=== PATIENT | female | born 1955 | race Caucasian/White ===

== ENCOUNTER 2016-03-07 14:55 | Emergency (ER) | payer MEDICARE, OTHER ==
[~2016-03-07] VITALS: Ht 160 cm; Wt 80.0 kg
[~2016-03-07 14:55] MED LIST changes: -ATOR10TA15 PO; -BLOOD PRESSURE1 M20; -FLUT1INH INH; -FOSA70TA PO; -INSULIN HUMAN REGULAR 1,000 UNITS/10 ML VIAL SQ PRN; -LACTATED RINGER'S 1000 ML IV SCH; -METOPROLOL TARTRATE 25 MG TAB PO PRN; -PROP20TA3 PO; -PROP40TA3 PO; -PROPOFOL 200 MG/20 ML AMP IV ONE; -SODIUM CHLORID 0.9% 500 ML IV SCH; -TRAZ100T4 PO
[2016-03-07 14:57] VITALS: BP 166/93; PULSE 83; RESP 12; TEMP 97.5; O2SAT 97
--- NOTE | 2016-03-07 15:09 | PD ---
HPI Chief Complaint: General Weakness Time Seen by Provider: 15:09 Travel History International Travel<30 days: No Contact w/Intl Traveler<30days: No Traveled to known affect area: No History of Present Illness HPI 60-year-old female with history of CVA, subdural hemorrhage in October 2015, seizure disorder, tremors, COPD, presented to the emergency department for evaluation at the instruction of her primary care provider Dr. Olivia. Patient states that one week ago she began stuttering. She states it has persisted throughout the week and has gotten worse. She states she has had a mild headache throughout the week but otherwise is well. She reports no other focal deficits or weakness. States that she has no residual effects from her previous bleed. Denies nausea or vomiting. Has had no chest pain or tightness. No difficulty breathing. She is ambulatory with a walker. States that the stuttering did happen one time before after leaving rehabilitation but resolved within a day or 2. She was also admitted during that time. Patient at this time has no other symptoms to report. PFSH Past Medical History Arthritis: Yes Asthma: Yes Autoimmune Disease: No Anxiety: Yes Depression: Yes Cancer: Yes (skin cancer on head removed years ago) Cardiovascular Problems: No Cerebrovascular Accident: Yes Diabetes: No Diminished Hearing: No Endocrine: No Gastrointestinal Disorders: Yes (GASTROPARESIS, GERD) GERD: Yes Glaucoma: Yes Genitourinary: Yes (SELF CATHS QID) Headaches: Yes (3 time per week - takes topamax) Hepatitis: Yes (HX HEP B) Hiatal Hernia: Yes Hypertension: Yes Immune Disorder: No Implanted Vascular Access Dvce: Yes Kidney Stones: Yes Musculoskeletal: Yes (arthritis back/neck, osteoporosis) Neurologic: Yes (stroke/subdural hematoma 10/2015, seizures, tremors, stuttering 2 wks) Psychiatric: Yes (anxiety/depression) Reproductive: No Respiratory: Yes (asthma/copd) Immunizations Current: No Migraines: No Seizures: Yes Thyroid Disease: No (prev hx of now no issues per pt) Menopausal: Yes Past Surgical History Abdominal Surgery: Yes (gallbladder, hernia repair x2) AICD: No Body Medical Devices: RIGHT FOOT HARDWARE, MANOJ TO LEFT AXILLA Cardiac Surgery: No Cholecystectomy: Yes Ear Surgery: No Endocrine Surgery: No Eye Surgery: No Genitourinary Surgery: Yes (lithotripsy) Gynecologic Surgery: No Joint Replacement: No Oral Surgery: Yes (tonsillectomy) Pacemaker: No Thoracic Surgery: No Tonsillectomy: Yes Other Surgery: Yes (CHOLECYSTECTOMY,TONSILLECTOMY,EGD) Social History Alcohol Use: No Tobacco Use: No Substance Use: No Allergies-Medications (Allergen,Severity, Reaction): Coded Allergies: Ativan (Verified Allergy, Severe, pyschosis , 03/07/16) Tetanus Toxoid (Verified Allergy, Unknown, 03/07/16) *MDRO Multi-Drug Resistant Organism (Verified Adverse Reaction, Unknown, ) 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 - 10/28/15 Reported Meds & Prescriptions Reported Meds & Active Scripts Active Protonix (Pantoprazole Sodium) 40 Mg Tab 40 Mg PO DAILY Effexor (Venlafaxine HCl) 75 Mg Tab 75 Mg PO DAILY Trazodone (Trazodone HCl) 50 Mg Tab 50 Mg PO HS Xalatan Opth Drops (Latanoprost) 0.005% Drops 1 Drop EACH EYE HS Aspirin 81 (Aspirin) 81 Mg Tabdr 81 Mg PO DAILY Spiriva Handihaler (Tiotropium Inh) 18 Mcg Cap 18 Mcg INH DAILY 1 capsule = 18 mcg Fluticasone Nasal [place] 50 Mcg/Act Naspr 50 Mcg EACH NARE BID 50 mcg/spray Albuterol Neb (Albuterol Sulfate) 2.5 Mg/3 Ml Neb 2.5 Mg NEB QID NEB Reported Oxygen tank (Oxygen) 1 Ea Tank 2 Liter JUAN.CANULA CONTINUOUS PRN Oxygen Concentrator Portable Gaseous 2 L/min via Nasal Cannula Continuous For 99 months Carbamazepine 100 Mg Chew 100 Mg CHEW BID Review of Systems Except as stated in HPI: all other systems reviewed are Neg Physical Exam Narrative GENERAL: Well-nourished, female patient, ambulatory with a walker assistance, in no acute distress SKIN: Warm and dry. HEAD: Atraumatic. Normocephalic. EYES: Pupils equal and round. No scleral icterus. No injection or drainage. ENT: No nasal bleeding or discharge. Mucous membranes pink and moist. NECK: Trachea midline. No JVD. CARDIOVASCULAR: Regular rate and rhythm. No murmur appreciated. RESPIRATORY: No accessory muscle use. Clear to auscultation. Breath sounds equal bilaterally. GASTROINTESTINAL: Abdomen soft, non-tender, nondistended. Hepatic and splenic margins not palpable. MUSCULOSKELETAL: No obvious deformities. No clubbing. No cyanosis. No edema. NEUROLOGICAL: Awake and alert. Upon assessment of the cranial nerves I feel that there is a slight deviation to the right when the patient states that her tongue. There is a week and smile on the right. Patient also has a weakened hull sorter on the right when compared to the left. Stuttered speech PSYCHIATRIC: Appropriate mood and affect; insight and judgment normal. Data Data Last Documented VS Vital Signs Date Time Temp Pulse Resp B/P Pulse Ox O2 Delivery O2 Flow Rate FiO2 03/07/16 20:18 75 18 157/87 98 Room Air 03/07/16 14:57 97.5 Orders Electrocardiogram (03/07/16 15:08) Prothrombin Time / Inr (Pt) (03/07/16 15:08) Act Partial Throm Time (Ptt) (03/07/16 15:08) Complete Blood Count With Diff (03/07/16 15:08) Basic Metabolic Panel (Bmp) (03/07/16 15:08) Creatine Kinase (Cpk) (03/07/16 15:08) Drug Screen, Random Urine (03/07/16 15:08) Troponin I (03/07/16 15:08) Urinalysis - C+S If Indicated (03/07/16 15:08) Ct Brain W/O Iv Contrast(Rout) (03/07/16 15:08) Chest, Single Ap (03/07/16 15:08) Mri Brain W/O Contrast (03/07/16 20:25) Mra Brain W/O Contrast (Cow) (03/07/16 20:25) Mra Carotids W Contrast (03/07/16 20:25) Gadodiamide Pf Inj (Omniscan Pf Inj) (03/07/16 21:28) Labs Laboratory Tests Test 03/07/16 03/07/16 15:22 15:24 White Blood Count 5.0 TH/MM3 Red Blood Count 4.40 MIL/MM3 Hemoglobin 14.1 GM/DL Hematocrit 40.9 % Mean Corpuscular Volume 93.1 FL Mean Corpuscular Hemoglobin 32.0 PG Mean Corpuscular Hemoglobin 34.4 % Concent Red Cell Distribution Width 13.3 % Platelet Count 221 TH/MM3 Mean Platelet Volume 9.0 FL Neutrophils (%) (Auto) 59.4 % Lymphocytes (%) (Auto) 28.7 % Monocytes (%) (Auto) 7.3 % Eosinophils (%) (Auto) 3.8 % Basophils (%) (Auto) 0.8 % Neutrophils # (Auto) 3.0 TH/MM3 Lymphocytes # (Auto) 1.4 TH/MM3 Monocytes # (Auto) 0.4 TH/MM3 Eosinophils # (Auto) 0.2 TH/MM3 Basophils # (Auto) 0.0 TH/MM3 CBC Comment DIFF FINAL Differential Comment Prothrombin Time 10.3 SEC Prothromb Time International 0.9 RATIO Ratio Activated Partial 26.4 SEC Thromboplast Time Sodium Level 139 MEQ/L Potassium Level 3.3 MEQ/L Chloride Level 103 MEQ/L Carbon Dioxide Level 25.7 MEQ/L Anion Gap 10 MEQ/L Blood Urea Nitrogen 12 MG/DL Creatinine 0.79 MG/DL Estimat Glomerular Filtration 74 ML/MIN Rate Random Glucose 90 MG/DL Calcium Level 8.6 MG/DL Total Creatine Kinase 51 U/L Troponin I LESS THAN 0.02 NG/ML Urine Color YELLOW Urine Turbidity CLEAR Urine pH 6.0 Urine Specific [place] 1.013 Urine Protein NEG mg/dL Urine Glucose (UA) NEG mg/dL Urine Ketones NEG mg/dL Urine Occult Blood NEG Urine Nitrite NEG Urine Bilirubin NEG Urine Urobilinogen LESS THAN 2.0 MG/DL Urine Leukocyte Esterase SMALL Urine RBC LESS THAN 1 /hpf Urine WBC 2 /hpf Urine Squamous Epithelial 1 /hpf Cells Microscopic Urinalysis Comment CATH-CULT NOT IND MDM Medical Decision Making Medical Screen Exam Complete: Yes Emergency Medical Condition: Yes Medical Record Reviewed: Yes Differential Diagnosis CVA versus TIA versus intracranial hemorrhage versus medication side effect versus electrolyte abnormality versus conversion disorder Narrative Course 60 year-old female presents to emergency department for evaluation. Patient appears overall without distress. She is stuttering and has very slight weakness on the right when compared to the left. Consent consent been ongoing for a week. Workup was initiated in the triage area. Once a medical bed becomes available, patient will be transferred and care assumed by that provider. Condition: Stable OrtegaKamryn gonzales KATHE Mar 07, 2016 15:09
[2016-03-07 15:47] LABS: BASOPHIL % 0.8 % (0.0-2.0); EOSINOPHIL # 0.2 TH/MM3 (0-0.4); EOSINOPHIL % 3.8 % (0.0-4.0); HEMATOCRIT 40.9 % (35.0-46.0); HEMO FLAGS DIFF FINAL; LYMPH % 28.7 % (9.0-44.0); LYMPHOCYTE # 1.4 TH/MM3 (1.0-4.8); MEAN CELL VOLUME 93.1 FL (80.0-100.0); MEAN CORPUSCULAR HGB CONC 34.4 % (32.0-36.0); MONO % 7.3 % (0.0-8.0); NEUT % 59.4 % (16.0-70.0); PLATELET COUNT 221 TH/MM3 (150-450); RED CELL DISTRIBUTION WIDTH 13.3 % (11.6-17.2)
--- NOTE | 2016-03-07 15:56 | RADRPT ---
EXAM DATE/TIME: 03/07/2016 15:19 [facility] COMPARISON: CHEST SINGLE AP, November 01, 2015, 9:24. INDICATIONS : Short of breath. MEDICAL HISTORY : Stroke. SURGICAL HISTORY : None. ENCOUNTER: Initial ACUITY: 1 day PAIN SCORE: 3/10 LOCATION: Bilateral chest FINDINGS: Portable AP view of the chest demonstrates a normal-sized cardiac silhouette. No effusion, consolidat ion, or pneumothorax is visualized. The bones and soft tissues demonstrate no acute abnormality. Lung s are underinflated. Clips overlie the left axilla. CONCLUSION: No acute cardiopulmonary abnormality is identified. Tim Lopez MD on March 07, 2016 at 15:50 Board Certified Radiologist. This report was verified electronically.
[2016-03-07 15:59] LABS: BLOOD, URINE NEG (NEG); GLUCOSE,URINE NEG (NEG); KETONE, URINE NEG (NEG); NITRITE,URINE NEG (NEG); SQUAMOUS EPITHELIAL CELL URINE 1 /hpf (0-5); URINE COLOR YELLOW (YELLW/STRAW)
--- NOTE | 2016-03-07 16:00 | RADRPT ---
EXAM DATE/TIME: 03/07/2016 15:53 [facility] COMPARISON: CT BRAIN W/O CONTRAST, December 06, 2015, 18:25. INDICATIONS : Stuttering for 1 week; stroke 1 year ago. RADIATION DOSE: 46.36 CTDIvol (mGy) MEDICAL HISTORY : Stroke. Seizures. Hypertension.ICH, glaucoma, tremors, skin cancer. SURGICAL HISTORY : Tonsillectomy. ENCOUNTER: Initial ACUITY: 1 week PAIN SCALE: 0/10 LOCATION: cranial TECHNIQUE: Multiple contiguous axial images were obtained of the head. Using automated exposure control and adj ustment of the mA and/or kV according to patient size, radiation dose was kept as low as reasonably a chievable to obtain optimal diagnostic quality images. FINDINGS: CEREBRUM: The ventricles are normal for age. No evidence of midline shift, mass lesion, hemorrhage or acute in farction. No extra-axial fluid collections are seen. POSTERIOR FOSSA: The cerebellum and brainstem are intact. The 4th ventricle is midline. The cerebellopontine angle i s unremarkable. EXTRACRANIAL: The visualized portion of the orbits is intact. SKULL: The calvaria is intact. No evidence of skull fracture. CONCLUSION: No acute disease. No significant change has occurred. Drew Garcia MD on March 07, 2016 at 15:58 Board Certified Radiologist. This report was verified electronically.
[2016-03-07 16:01] LABS: APTT (PATIENT) 26.4 SEC (24.3-30.1); INTERNATIONAL NORMALIZED RATIO 0.9 RATIO; PROTHROMBIN TIME - PATIENT 10.3 SEC (9.8-11.6)
[2016-03-07 16:05] LABS: ANION GAP 10 MEQ/L (5-15); BICARBONATE 25.7 MEQ/L (21.0-32.0); BLOOD UREA NITROGEN 12 MG/DL (7-18); CHLORIDE 103 MEQ/L (98-107); GLOMERULAR FILTRATION RATE 74 ML/MIN (>89); POTASSIUM 3.3 MEQ/L (3.5-5.1); SODIUM (NA) 139 MEQ/L (136-145)
[2016-03-07 16:14] LABS: COMMENT (UR) CATH-CULT NOT IND; CULTURE IF INDICATED CATH CULTURE NOT IND
[2016-03-07 16:38] LABS: CREATINE KINASE 51 U/L (26-192)
--- NOTE | 2016-03-07 19:19 | EKG ---
Date Performed: 03/07/2016 Time Performed: 16:03:01 PTAGE: 60 years EKG: Sinus rhythm NORMAL ECG COMPARED TO PRIOR ELECTROCARDIOGRAM, No definite change. PREVIOUS TRACING : 12/06/2015 17.31 DOCTOR: Jeff Argueta Interpretating Date/Time 03/07/2016 19:18:38
[2016-03-07 20:18] VITALS: BP 157/87; PULSE 75; RESP 18; O2SAT 98
--- NOTE | 2016-03-07 20:22 | PD ---
Physical Exam Narrative Patient was seen by my physician hotel administrative assistant and signed out to me. Data Data Last Documented VS Vital Signs Date Time Temp Pulse Resp B/P Pulse Ox O2 Delivery O2 Flow Rate FiO2 03/07/16 20:18 75 18 157/87 98 Room Air 03/07/16 14:57 97.5 Orders Electrocardiogram (03/07/16 15:08) Prothrombin Time / Inr (Pt) (03/07/16 15:08) Act Partial Throm Time (Ptt) (03/07/16 15:08) Complete Blood Count With Diff (03/07/16 15:08) Basic Metabolic Panel (Bmp) (03/07/16 15:08) Creatine Kinase (Cpk) (03/07/16 15:08) Drug Screen, Random Urine (03/07/16 15:08) Troponin I (03/07/16 15:08) Urinalysis - C+S If Indicated (03/07/16 15:08) Ct Brain W/O Iv Contrast(Rout) (03/07/16 15:08) Chest, Single Ap (03/07/16 15:08) Mri Brain W/O Contrast (03/07/16 20:25) Mra Brain W/O Contrast (Cow) (03/07/16 20:25) Mra Carotids W Contrast (03/07/16 20:25) Gadodiamide Pf Inj (Omniscan Pf Inj) (03/07/16 21:28) Labs Laboratory Tests Test 03/07/16 03/07/16 15:22 15:24 White Blood Count 5.0 TH/MM3 Red Blood Count 4.40 MIL/MM3 Hemoglobin 14.1 GM/DL Hematocrit 40.9 % Mean Corpuscular Volume 93.1 FL Mean Corpuscular Hemoglobin 32.0 PG Mean Corpuscular Hemoglobin 34.4 % Concent Red Cell Distribution Width 13.3 % Platelet Count 221 TH/MM3 Mean Platelet Volume 9.0 FL Neutrophils (%) (Auto) 59.4 % Lymphocytes (%) (Auto) 28.7 % Monocytes (%) (Auto) 7.3 % Eosinophils (%) (Auto) 3.8 % Basophils (%) (Auto) 0.8 % Neutrophils # (Auto) 3.0 TH/MM3 Lymphocytes # (Auto) 1.4 TH/MM3 Monocytes # (Auto) 0.4 TH/MM3 Eosinophils # (Auto) 0.2 TH/MM3 Basophils # (Auto) 0.0 TH/MM3 CBC Comment DIFF FINAL Differential Comment Prothrombin Time 10.3 SEC Prothromb Time International 0.9 RATIO Ratio Activated Partial 26.4 SEC Thromboplast Time Sodium Level 139 MEQ/L Potassium Level 3.3 MEQ/L Chloride Level 103 MEQ/L Carbon Dioxide Level 25.7 MEQ/L Anion Gap 10 MEQ/L Blood Urea Nitrogen 12 MG/DL Creatinine 0.79 MG/DL Estimat Glomerular Filtration 74 ML/MIN Rate Random Glucose 90 MG/DL Calcium Level 8.6 MG/DL Total Creatine Kinase 51 U/L Troponin I LESS THAN 0.02 NG/ML Urine Color YELLOW Urine Turbidity CLEAR Urine pH 6.0 Urine Specific [place] 1.013 Urine Protein NEG mg/dL Urine Glucose (UA) NEG mg/dL Urine Ketones NEG mg/dL Urine Occult Blood NEG Urine Nitrite NEG Urine Bilirubin NEG Urine Urobilinogen LESS THAN 2.0 MG/DL Urine Leukocyte Esterase SMALL Urine RBC LESS THAN 1 /hpf Urine WBC 2 /hpf Urine Squamous Epithelial 1 /hpf Cells Microscopic Urinalysis Comment CATH-CULT NOT IND MDM Supervised Visit with RADHA: Yes Interpretation(s) Last Impressions Head CT 03/07/16 1508 Signed Impressions: Service Date/Time: Monday, March 07, 2016 15:53 - CONCLUSION: No acute disease. No significant change has occurred. Drew Garcia MD Chest X-Ray 03/07/16 1508 Signed Impressions: Service Date/Time: Monday, March 07, 2016 15:19 - CONCLUSION: No acute cardiopulmonary abnormality is identified. Tim Lopez MD 2019 PM. CBC within normal limit. BMP within normal limit. Potassium 3.3. Cardiac enzymes are normal. UA is negative. Narrative Course 10:[address] of the brain MRI MRA shows no acute process. I spoke with Dr. Rodriguez, on-call for Dr. Gama. Advised patient to follow-up with personal physician and neurologist. Diagnosis Primary Impression: Stutter Patient Instructions: General Instructions Additional Instruction: Follow-up with personal physician and neurologist. Return if worse. Med/Other Pt SpecificInfo: No Change to Meds Disposition: 01 DISCHARGE HOME Condition: Stable Taj Segura MD Mar 07, 2016 20:22
[2016-03-07] MEDS ORDERED: GADODIAMIDE PF 287 MG/ML 20 ML VIAL (for RAD MRI) IV ONE (21:28)
--- NOTE | 2016-03-07 21:41 | RADRPT ---
EXAM DATE/TIME: 03/07/2016 20:58 [facility] COMPARISON: MRA BRAIN W/O CONTRAST, October 26, 2015, 14:33. INDICATIONS : CVA. Stuttering. MEDICAL HISTORY : Cerebrovascular disease. Seizures. Osteoporosis. Subdural hemorrhage. SURGICAL HISTORY : Tonsillectomy. Cholecystectomy. Umbilical hernia repair. Foot surgery. ENCOUNTER: Subsequent ACUITY: 2 day PAIN SCORE: 0/10 LOCATION: head. Please note a normal MRA of the brain does not entirely exclude the possibility of a small aneurysm, nor the possibility of distal intracranial vessel disease. TECHNIQUE: 3D time of flight MRA was performed. Source images, multiplanar STS MIP, and 3D volume MIP reconstru ctions were reviewed. FINDINGS: There is excellent visualization of the major intracranial arteries out to the second-order branch ve ssels. The left vertebral artery is dominant. A mild stenosis is seen involving the nondominant right vertebral artery. Post applied the basilar. There is no evidence for aneurysm or vascular malformati on. CONCLUSION: No acute abnormality. Mild stenosis involving the nondominant right vertebral artery. Andrey Venegas Jr., MD on March 07, 2016 at 21:37 Board Certified Radiologist. This report was verified electronically.
--- NOTE | 2016-03-07 21:47 | RADRPT ---
EXAM DATE/TIME: 03/07/2016 20:58 [facility] COMPARISON: MRI BRAIN W & W/O CONTRAST, December 06, 2015, 20:08. INDICATIONS : CVA. Stuttering. MEDICAL HISTORY : Osteoporosis. Cerebrovascular disease. Seizures. Subdural hemorrhage. SURGICAL HISTORY : Tonsillectomy. Cholecystectomy. Umbilical hernia repair. Foot surgery. ENCOUNTER: Subsequent ACUITY: 2 day PAIN SCORE: 0/10 LOCATION: head. TECHNIQUE: Multiplanar, multisequence MRI of the brain was performed without contrast. FINDINGS: CEREBRUM: The ventricles are normal for age. No evidence of midline shift, mass lesion, hemorrhage or acute in farction. No extraaxial fluid collections are seen. The pituitary gland and suprasellar cistern are normal in configuration. Normal flow voids involving the major intracranial vessels. Note is made of dolichoectasia. WHITE MATTER: Scattered foci of high T2 signal abnormality involving the periventricular white matter of both cereb ral hemispheres. This is more abundant on the left. This is unchanged from the prior study. A POSTERIOR FOSSA: The cerebellum and brainstem are intact. The 4th ventricle is midline. The cerebellopontine angle is unremarkable. The cerebellar tonsils are normal in position. DIFFUSION IMAGING: No focal areas of restricted diffusion are seen. No evidence of acute infarction. EXTRACRANIAL: The visualized portions of the orbits and paranasal sinuses are unremarkable. CONCLUSION: 1. No acute intracranial abnormality. 2. Chronic small vessel ischemic change somewhat asymmetric towards the left cerebral hemisphere. 3. Dolichoectasia. Andrey Venegas Jr., MD on March 07, 2016 at 21:40 Board Certified Radiologist. This report was verified electronically.
--- NOTE | 2016-03-07 21:53 | RADRPT ---
EXAM DATE/TIME: 03/07/2016 20:58 [facility] COMPARISON: MRA CAROTIDS W CONTRAST, October 26, 2015, 14:33. INDICATIONS : Stenosis. CONTRAST: 20 cc Omniscan (gadodiamide) IV MEDICAL HISTORY : Osteoporosis. Cerebrovascular disease. Seizures. Subdural hemorrhage. SURGICAL HISTORY : Tonsillectomy. Cholecystectomy. Umbilical hernia repair. Foot surgery. ENCOUNTER: Subsequent ACUITY: 2 day PAIN SCORE: 0/10 LOCATION: neck. Percent stenosis is calculated using the diameter of the stenotic region over the diameter of the nor mal distal internal carotid artery. TECHNIQUE: Bolus infused MRA of the extracranial circulation was performed using a neurovascular coil. Post pro cessing was performed including rotationg subvolume maximum intensity projections of each carotid art donta, rotating full volume maximum intensity projections of both carotid arteries, sagittal and valdovinos l sliding thin slab reformations of each carotid artery, and left oblique sliding thin slab reformati on through the aortic arch to include the origin of the arch branch vessels. FINDINGS: AORTIC ARCH: There is a three vessel origin of the great vessels from the aorta. No evidence of ostial narrowing. RIGHT CAROTID: The common carotid artery is intact. The carotid bulb has a normal configuration without ulceration or narrowing. The internal carotid artery lumen is smooth without stenosis. The external carotid ar [place] is intact. LEFT CAROTID: The common carotid artery is intact. The carotid bulb has a normal configuration without ulceration or narrowing. The internal carotid artery lumen is smooth without stenosis. The external carotid ar [place] is intact. VERTEBRALS: The left vertebral artery is dominant. No stenotic lesions are seen. CONCLUSION: 1. Patent although tortuous carotids bilaterally. 2. Left vertebral artery is dominant. Andrey Venegas Jr., MD on March 07, 2016 at 21:49 Board Certified Radiologist. This report was verified electronically.
[2016-03-17] MEDS ORDERED: TRAZ50TA12 PO ×2 (11:34→11:35)
[2016-03-17] MEDS ORDERED: PROP40TA3 PO (11:36)
[2016-03-17] MEDS ORDERED: ATOR10TA15 PO (11:38)
[2016-03-17] MEDS ORDERED: FOSA70TA PO (11:41)
[2016-03-20] MEDS ORDERED: TRAZ100T4 PO (11:15)
[2016-04-25] MEDS ORDERED: BLOOD PRESSURE1 M20 (13:43)
[2016-04-25] MEDS ORDERED: SPIRCAP INH (14:22)
[2016-04-25] MEDS ORDERED: ASPI-110 PO (14:22)
[2016-04-25] MEDS ORDERED: ALBU0.08 NEB (14:22)
[2016-04-25] MEDS ORDERED: FLUT50SP EACH NARE (14:22)
[2016-07-14] MEDS ORDERED: TRAZ50TA12 PO (13:53)
[2016-07-19] MEDS ORDERED: VENL75TA PO (07:21)
[2016-07-19] MEDS ORDERED: PROT40TA PO (07:22)
[2016-07-26] MEDS ORDERED: FLUT1INH INH (14:38)
[2016-07-26] MEDS ORDERED: PROP20TA3 PO (14:40)
== END 2016-03-07 23:45 | disposition home or self-care (01) ==
LOC: NEPA 14:55
DX: F98.5 Adult onset fluency disorder (principal); R51 Headache; I10 Essential (primary) hypertension; Z87.39 Personal history of other diseases of the musculoskeletal system and connective tissue; Z86.73 Personal history of transient ischemic attack (TIA), and cerebral infarction without residual deficits; Z86.69 Personal history of other diseases of the nervous system and sense organs; Z87.09 Personal history of other diseases of the respiratory system; Z86.59 Personal history of other mental and behavioral disorders; Z87.19 Personal history of other diseases of the digestive system; Z87.448 Personal history of other diseases of urinary system; Z86.19 Personal history of other infectious and parasitic diseases; Z87.442 Personal history of urinary calculi; K22.2 Esophageal obstruction; K22.10 Ulcer of esophagus without bleeding; K44.9 Diaphragmatic hernia without obstruction or gangrene; K29.50 Unspecified chronic gastritis without bleeding; R10.13 Epigastric pain; R11.2 Nausea with vomiting, unspecified
CPT/HCPCS: 70450; 70544; 70548; 70551; 71010; 80048; 81001; 82550; 84484; 85025; 85610; 85730; 93005; 99285; A9579; 88305; 88312; C1769

== ENCOUNTER → 2016-03-07 | Outpatient (CLI) | payer MEDICARE, OTHER ==
[~2016-03-07] VITALS: Ht 160 cm; Wt 73.3 kg
[~2016-03-07] MED LIST: ALBU0.08 NEB; ASPI-110 PO; ATOR10TA15 PO; BLOOD PRESSURE1 M20; CARB100C CHEW; FLUT1INH INH; FLUT50SP EACH NARE; FOSA70TA PO; INSULIN HUMAN REGULAR 1,000 UNITS/10 ML VIAL SQ PRN; IPRAAER INH; LACTATED RINGER'S 1000 ML IV SCH; LATA.005%O EACH EYE; METOPROLOL TARTRATE 25 MG TAB PO PRN; OXYGENTANK NAS.CANULA; PROP20TA3 PO; PROP40TA3 PO; PROPOFOL 200 MG/20 ML AMP IV ONE; PROT40TA PO; SODIUM CHLORID 0.9% 500 ML IV SCH; SPIRCAP INH; TRAZ100T4 PO; TRAZ50TA12 PO; VENL75TA PO
[2016-03-07 08:49] VITALS: BP 130/72; PULSE 80; RESP 20; TEMP 98.1; O2SAT 100
[2016-03-07 10:12] VITALS: BP 118/67; PULSE 65; RESP 18; O2SAT 99
== END ==
LOC: HEND 08:08
PROVIDERS: ATTEND Internal Medicine Gastroenterology
DX: K22.2 Esophageal obstruction (principal); K22.10 Ulcer of esophagus without bleeding; K44.9 Diaphragmatic hernia without obstruction or gangrene; K29.50 Unspecified chronic gastritis without bleeding; R10.13 Epigastric pain; R11.2 Nausea with vomiting, unspecified
CPT/HCPCS: 43239; 43248; 88305; 88312; 99156; 99157; C1769

== ENCOUNTER → 2016-04-21 | Outpatient (CLI) | payer MEDICARE, OTHER ==
[~2016-04-21] VITALS: Ht 160 cm; Wt 73.6 kg
[~2016-04-21] MED LIST changes: +ATOR10TA15 PO; +BENZOCAINE 20% ORAL SPR 60 ML CAN OROPHARYNG ONE; +BLOOD PRESSURE1 M20; +FLUT1INH INH; +FOSA70TA PO; -IPRAAER INH; +LIDOCAINE HCL 2% JELLY 5 ML SYRINGE TOPICAL ONE; +PROP20TA3 PO; +PROP40TA3 PO; +TRAZ100T4 PO
[2016-04-21 08:24] VITALS: BP 113/72; PULSE 52; RESP 16; TEMP 97.6; O2SAT 100
== END ==
LOC: HEND 07:14
PROVIDERS: ATTEND Internal Medicine Gastroenterology
DX: K44.9 Diaphragmatic hernia without obstruction or gangrene (principal)
CPT/HCPCS: 91010

== ENCOUNTER → 2016-11-06 | Day surgery (SDC) | payer MEDICARE, OTHER ==
[~2016-11-06] MED LIST changes: -BENZOCAINE 20% ORAL SPR 60 ML CAN OROPHARYNG ONE; +LACTATED RINGER'S 1000 ML INJ 1,000 ML ONE; -LIDOCAINE HCL 2% JELLY 5 ML SYRINGE TOPICAL ONE; -PROP40TA3 PO; +PROPOFOL 200 MG/20 ML AMP IV ONE; -PROT40TA PO; -TRAZ100T4 PO
--- NOTE | 2016-11-06 14:09 | GIPROC ---
[facility] [address] [facility], [address] EGD WITH DILATION PROCEDURE REPORT EXAM DATE: 11/06/2016 PATIENT NAME: Lourdes Shell MR#: [id number] BIRTHDATE: 1955 ATTENDING: Ivette Shcwartz MD ORDER #: [id number] DIRECTOR OF CAMPUS RECREATION: STATUS: outpatient INDICATIONS: The patient is a 61 yr old female here for an EGD with dilation due to dysphagia recurrent esophaghitis, stricture PROCEDURE PERFORMED: EGD w/ biopsy EGD w/ dilation of esophagus via guidewire MEDICATIONS: None and Per Anesthesia. TOPICAL ANESTHETIC: none CONSENT: The patient understands the risks and benefits of the procedure and understands that these risks include, but are not limited to: sedation, allergic reaction, infection, perforation and/or bleeding. Alternative means of evaluation and treatment include, among others: physical exam, x-rays, and/or surgical intervention. The patient elects to proceed with this endoscopic procedure. medical equipment was checked for proper function. Hand hygiene and appropriate measures for infection prevention was taken. After the risks, benefits and alternatives of the procedure were thoroughly explained, Informed consent was verified, confirmed and timeout was successfully executed by the treatment team. The patient was anesthetized with topical anesthesia and the EC-[id number] ([id number]) endoscope was introduced through the mouth and advanced to the second portion of the duodenum. The instrument was slowly withdrawn as the mucosa was fully examined. Severe esophagitis distal esophagus , stricture-biopsy hiatal hernia s/p Niessen funduplication gastritis antrum-biopsy. Dilation was performed at gastroesophageal junction. DILATOR: SIZE(S): RESISTANCE: HEME: APPEARANCE: Dilator: Savary over guidewire Size(s): 15 COMMENT: Retroflexed views revealed niessen funduplication ADVERSE EVENTS: There were no complications. IMPRESSIONS: 1. Severe esophagitis distal esophagus , stricture-biopsy hiatal hernia s/p Niessen funduplication gastritis antrum-biopsy 2. Retroflexed views revealed niessen funduplication RECOMMENDATIONS: 1. Await biopsy results. Biopsy results will not be ready for 7-10 days. If you don't hear from us in two weeks, call our office for biopsy results. 2. Anti-reflux regimen 3. Continue PPI 4. Dilatations PRN REPEAT EXAM: Return 3 months EGD Ivette Schwartz MD eSigned: Ivette Schwartz MD 11/06/2016 2:09 PM cc: Miko Devlin [facility] PATIENT NAME: Suleman Lourdes Christi MR#: [id number]
== END | disposition home or self-care (01) ==
LOC: ESDC 12:42
PROVIDERS: ATTEND Internal Medicine Gastroenterology
DX: R13.10 Dysphagia, unspecified (principal); K20.9 Esophagitis, unspecified; K22.2 Esophageal obstruction; K44.9 Diaphragmatic hernia without obstruction or gangrene; K29.70 Gastritis, unspecified, without bleeding
CPT/HCPCS: 00740; 43239; 43248; 88305; 88312; J7120

== ENCOUNTER 2017-07-25 10:07 | Emergency (ER) | payer MEDICARE, OTHER ==
[~2017-07-25] VITALS: Ht 157.5 cm; Wt 65.0 kg
[~2017-07-25 10:07] MED LIST changes: -ASPI-110 PO; +ASPI1TAB57 PO; -LACTATED RINGER'S 1000 ML INJ 1,000 ML ONE; +PANT40TA3 PO; -PROPOFOL 200 MG/20 ML AMP IV ONE; +SUCR1TAB PO
[2017-07-25 10:10] VITALS: BP 138/75; PULSE 63; RESP 16; TEMP 97.5; O2SAT 99
[2017-07-25] MEDS ORDERED: SODIUM CHLOR 0.9% 1000 ML INJ 1,000 ML IV SCH (10:25)
[2017-07-25] MEDS ORDERED: ONDANSETRON ODT 4 MG TAB PO ONE (10:30)
[2017-07-25] MEDS ORDERED: SODIUM CHLORIDE 0.9% FLUSH 10 ML FLUSH IV FLUSH PRN (10:30)
--- NOTE | 2017-07-25 10:32 | PD ---
HPI Chief Complaint: GI Complaint Time Seen by Provider: 10:18 Travel History International Travel<30 days: No Contact w/Intl Traveler<30days: No Traveled to known affect area: No History of Present Illness HPI The patient is a 61-year-old female who presents to the emergency department for nausea and vomiting of 3 days duration. The patient states she has a history of previous Carlos fundoplication, recurrent hiatal hernia with repair, and previous cholecystectomy. The patient was seen initially by Dr. Marsh, however, was referred to [facility] [place] [facility] in [place], [place]. The patient underwent revision of her Carlos fundoplication and hiatal hernia several months ago and has been doing well. However, over the last 3 days the patient has had nausea and vomiting. The patient denies any diarrhea, abdominal distention, and has been passing gas without difficulty. She does complain of intermittent dysuria. Symptoms are moderate. The patient does have a previous history of pancreatitis, also has a previous history of cholecystectomy. She denies any chest pain or shortness of breath. PFSH Past Medical History Arthritis: Yes Asthma: Yes Autoimmune Disease: No Anxiety: Yes Depression: Yes Cancer: Yes (skin cancer on head removed years ago) Cardiovascular Problems: No Cerebrovascular Accident: Yes Diabetes: No Diminished Hearing: No Endocrine: No Gastrointestinal Disorders: Yes (acid reflux, gastroparesis) GERD: Yes Glaucoma: Yes Genitourinary: Yes (SELF CATHS QID) Headaches: Yes (3 time per week - takes topamax) Hepatitis: Yes (HX HEP B) Hiatal Hernia: Yes Hypertension: Yes Immune Disorder: No Implanted Vascular Access Dvce: No Kidney Stones: Yes Musculoskeletal: Yes (arthritis back/neck, osteoporosis) Neurologic: Yes (stroke/subdural hematoma 10/2015, seizures, tremors, stuttering 2 wks) Psychiatric: Yes (anxiety/depression) Reproductive: No Respiratory: Yes (asthma/copd) Immunizations Current: No Migraines: No Pancreatitis: Yes Seizures: Yes Tetanus Vaccination: < 5 Years Menopausal: Yes Past Surgical History Abdominal Surgery: Yes (gallbladder, hernia repair x2, Cheli fundoplication) AICD: No Body Medical Devices: RIGHT FOOT HARDWARE, Cardiac Surgery: No Cholecystectomy: Yes Ear Surgery: No Endocrine Surgery: No Eye Surgery: No Genitourinary Surgery: Yes (lithotripsy) Gynecologic Surgery: No Joint Replacement: No Neurologic Surgery: No Oral Surgery: Yes (tonsillectomy) Pacemaker: No Thoracic Surgery: No Tonsillectomy: Yes Other Surgery: Yes (CHOLECYSTECTOMY,TONSILLECTOMY,EGD) Social History Alcohol Use: No Tobacco Use: No Substance Use: No Allergies-Medications (Allergen,Severity, Reaction): Coded Allergies: lorazepam (Unverified Allergy, Severe, pyschosis , 07/25/17) tetanus toxoid, adsorbed (Unverified Allergy, Unknown, 07/25/17) *MDRO Multi-Drug Resistant Organism (Verified Adverse Reaction, Unknown, ) 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 - 10/28/15 Reported Meds & Prescriptions Reported Meds & Active Scripts Active Atorvastatin (Atorvastatin Calcium) 10 Mg Tab 10 Mg PO HS Trazodone (Trazodone HCl) 50 Mg Tab 100 Mg PO HS Spiriva Handihaler (Tiotropium Inh) 18 Mcg Cap 18 Mcg INH DAILY 1 capsule = 18 mcg Fluticasone Nasal [place] 50 Mcg/Act Naspr 50 Mcg EACH NARE BID 50 mcg/spray Albuterol Neb (Albuterol Sulfate) 2.5 Mg/3 Ml Neb 2.5 Mg NEB QID NEB Fosamax (Alendronate Sodium) 70 Mg Tab 70 Mg PO Q7D Xalatan Opth Drops (Latanoprost) 0.005% Drops 1 Drop EACH EYE HS Propranolol (Propranolol HCl) 20 Mg Tab 20 Mg PO Q12HR Effexor (Venlafaxine HCl) 75 Mg Tab 75 Mg PO DAILY Aspirin 81 (Aspirin) 81 Mg Tabdr 81 Mg PO DAILY Blood Pressure Kit/Arm Cuff 1 Mis Mis 1 Ea .ROUTE DIRECTED Reported Miralax Powder (Polyethylene Glycol 3350 Powder) 17 Gm Powd 17 Gm PO DAILY PRN Mix and dissolve one measuring cap-ful (17 grams) in water or juice. Ventolin Hfa 18 GM Inh (Albuterol Sulfate) 90 Mcg/Act Aer 2 Puff INH Q4-6H PRN Klor-Con 10 (Potassium Chloride) 10 Meq Tab 10 Meq PO DAILY Omeprazole 20 Mg Tab 20 Mg PO DAILY Breo Ellipta Inh (Fluticasone/Vilanterol) 100-25 Mcg/Act Inh 1 Puff INH DAILY Use daily at the same time. Oxygen tank (Oxygen) 1 Ea Tank 2 Liter JUAN.CANULA CONTINUOUS PRN Oxygen Concentrator Portable Gaseous 2 L/min via Nasal Cannula Continuous For 99 months Carbamazepine 100 Mg Chew 100 Mg CHEW BID Review of Systems Except as stated in HPI: all other systems reviewed are Neg General / Constitutional: No: Fever Cardiovascular: No: Chest Pain or Discomfort Respiratory: No: Shortness of Breath Gastrointestinal: Positive: Nausea, Vomiting, No: Diarrhea, Abdominal Pain, Changes in Bowel Habits, Loss of Appetite Genitourinary: Positive: Dysuria Musculoskeletal: No: Weakness Physical Exam Narrative GENERAL: Awake, alert, pleasant 7-year-old female who appears her stated age and is in no acute respiratory distress. SKIN: Focused skin assessment warm/dry. HEAD: Atraumatic. Normocephalic. EYES: Pupils equal and round. No scleral icterus. No injection or drainage. ENT: No nasal bleeding or discharge. Slightly dry mucous membranes. NECK: Trachea midline. No JVD. CARDIOVASCULAR: Regular rate and rhythm. No murmur appreciated. RESPIRATORY: No accessory muscle use. Clear to auscultation. Breath sounds equal bilaterally. GASTROINTESTINAL: Abdomen soft, minimal epigastric tenderness. No guarding or rigidity. No tympany noted. Well-healed laparoscopic scars noted. MUSCULOSKELETAL: No obvious deformities. No clubbing. No cyanosis. No edema. NEUROLOGICAL: Awake and alert. No obvious cranial nerve deficits. Motor grossly within normal limits. Normal speech. PSYCHIATRIC: Appropriate mood and affect; insight and judgment normal. Data Data Last Documented VS Vital Signs Date Time Temp Pulse Resp B/P (MAP) Pulse Ox O2 Delivery O2 Flow Rate FiO2 07/25/17 10:39 100 Room Air 07/25/17 10:39 70 12 142/80 (100) 07/25/17 10:10 97.5 Orders Orders Complete Blood Count With Diff (07/25/17 10:25) Comprehensive Metabolic Panel (07/25/17 10:25) Lipase (07/25/17 10:25) Lactic Acid (07/25/17 10:25) Urinalysis - C+S If Indicated (07/25/17 10:25) Ct Abd/Pel W Iv Contrast(Rout) (07/25/17 10:25) Iv Access Insert/Monitor (07/25/17 10:25) Ecg Monitoring (07/25/17 10:25) Oximetry (07/25/17 10:25) Sodium Chlor 0.9% 1000 Ml Inj (Ns 1000 M (07/25/17 10:25) Sodium Chloride 0.9% Flush (Ns Flush) (07/25/17 10:30) Ondansetron Odt (Zofran Odt) (07/25/17 10:30) Oral Contrast - Adult (07/25/17 10:30) Electrocardiogram (07/25/17 ) Troponin I (07/25/17 10:40) Creatine Kinase (Cpk) (07/25/17 10:40) Diatrizoate Liq ( Gastroview Liq) (07/25/17 10:42) Urine Culture (07/25/17 10:54) Morphine Inj (Morphine Inj) (07/25/17 11:45) Ceftriaxone Inj (Rocephin Inj) (07/25/17 12:15) Morphine Inj (Morphine Inj) (07/25/17 13:45) Iohexol 350 Inj (Omnipaque 350 Inj) (07/25/17 13:00) Labs Laboratory Tests Test 07/25/17 10:40 07/25/17 10:54 07/25/17 11:57 Blood Urea Nitrogen 10 MG/DL Creatinine 0.74 MG/DL Random Glucose 93 MG/DL Total Protein 7.9 GM/DL Albumin 4.2 GM/DL Calcium Level 9.1 MG/DL Alkaline Phosphatase 114 U/L Aspartate Amino Transf (AST/SGOT) 53 U/L Alanine Aminotransferase (ALT/SGPT) 29 U/L Total Bilirubin 0.7 MG/DL Sodium Level 138 MEQ/L Potassium Level 4.7 MEQ/L Chloride Level 104 MEQ/L Carbon Dioxide Level 24.6 MEQ/L Anion Gap 9 MEQ/L Estimat Glomerular Filtration Rate 80 ML/MIN Lactic Acid Level 0.5 mmol/L Total Creatine Kinase 114 U/L Troponin I LESS THAN 0.02 NG/ML Lipase 34 U/L Urine Color YELLOW Urine Turbidity CLOUDY Urine pH 6.0 Urine Specific [place] 1.025 Urine Protein 30 mg/dL Urine Glucose (UA) NEG mg/dL Urine Ketones 10 mg/dL Urine Occult Blood SMALL Urine Nitrite NEG Urine Bilirubin NEG Urine Urobilinogen 2.0 MG/DL Urine Leukocyte Esterase LARGE Urine RBC 5 /hpf Urine WBC /hpf Urine Bacteria FEW /hpf Urine Hyaline Casts 4 /lpf Microscopic Urinalysis Comment CULTURE INDICATED White Blood Count 3.7 TH/MM3 Red Blood Count 4.22 MIL/MM3 Hemoglobin 13.4 GM/DL Hematocrit 39.7 % Mean Corpuscular Volume 94.0 FL Mean Corpuscular Hemoglobin 31.8 PG Mean Corpuscular Hemoglobin Concent 33.8 % Red Cell Distribution Width 13.3 % Platelet Count 180 TH/MM3 Mean Platelet Volume 9.4 FL Neutrophils (%) (Auto) 58.0 % Lymphocytes (%) (Auto) 27.4 % Monocytes (%) (Auto) 7.8 % Eosinophils (%) (Auto) 6.1 % Basophils (%) (Auto) 0.7 % Neutrophils # (Auto) 2.1 TH/MM3 Lymphocytes # (Auto) 1.0 TH/MM3 Monocytes # (Auto) 0.3 TH/MM3 Eosinophils # (Auto) 0.2 TH/MM3 Basophils # (Auto) 0.0 TH/MM3 CBC Comment DIFF FINAL Differential Comment MDM Medical Decision Making Medical Screen Exam Complete: Yes Emergency Medical Condition: Yes Medical Record Reviewed: Yes Interpretation(s) EKG reveals normal sinus rhythm with a rate of 70. No ischemic changes or ectopy noted. Laboratory Tests Test 07/25/17 10:40 07/25/17 10:54 07/25/17 11:57 Blood Urea Nitrogen 10 MG/DL Creatinine 0.74 MG/DL Random Glucose 93 MG/DL Total Protein 7.9 GM/DL Albumin 4.2 GM/DL Calcium Level 9.1 MG/DL Alkaline Phosphatase 114 U/L Aspartate Amino Transf (AST/SGOT) 53 U/L Alanine Aminotransferase (ALT/SGPT) 29 U/L Total Bilirubin 0.7 MG/DL Sodium Level 138 MEQ/L Potassium Level 4.7 MEQ/L Chloride Level 104 MEQ/L Carbon Dioxide Level 24.6 MEQ/L Anion Gap 9 MEQ/L Estimat Glomerular Filtration Rate 80 ML/MIN Lactic Acid Level 0.5 mmol/L Total Creatine Kinase 114 U/L Troponin I LESS THAN 0.02 NG/ML Lipase 34 U/L Urine Color YELLOW Urine Turbidity CLOUDY Urine pH 6.0 Urine Specific [place] 1.025 Urine Protein 30 mg/dL Urine Glucose (UA) NEG mg/dL Urine Ketones 10 mg/dL Urine Occult Blood SMALL Urine Nitrite NEG Urine Bilirubin NEG Urine Urobilinogen 2.0 MG/DL Urine Leukocyte Esterase LARGE Urine RBC 5 /hpf Urine WBC /hpf Urine Bacteria FEW /hpf Urine Hyaline Casts 4 /lpf Microscopic Urinalysis Comment CULTURE INDICATED White Blood Count 3.7 TH/MM3 Red Blood Count 4.22 MIL/MM3 Hemoglobin 13.4 GM/DL Hematocrit 39.7 % Mean Corpuscular Volume 94.0 FL Mean Corpuscular Hemoglobin 31.8 PG Mean Corpuscular Hemoglobin Concent 33.8 % Red Cell Distribution Width 13.3 % Platelet Count 180 TH/MM3 Mean Platelet Volume 9.4 FL Neutrophils (%) (Auto) 58.0 % Lymphocytes (%) (Auto) 27.4 % Monocytes (%) (Auto) 7.8 % Eosinophils (%) (Auto) 6.1 % Basophils (%) (Auto) 0.7 % Neutrophils # (Auto) 2.1 TH/MM3 Lymphocytes # (Auto) 1.0 TH/MM3 Monocytes # (Auto) 0.3 TH/MM3 Eosinophils # (Auto) 0.2 TH/MM3 Basophils # (Auto) 0.0 TH/MM3 CBC Comment DIFF FINAL Differential Comment Last Impressions Abdomen/Pelvis CT 07/25/17 1025 Signed Impressions: CONCLUSION: 1. Prominent endometrium. 2. No inflammatory changes are evident 3. Bowel gas pattern unremarkable. Differential Diagnosis Differential diagnosis includes partial small bowel obstruction, GERD, gastroparesis, retained biliary stone, pancreatitis, small bowel obstruction, internal hernia, dehydration, electrolyte abnormality. Narrative Course IV was established, labs are drawn and sent, and the patient was placed on cardiac telemetry monitoring and continuous pulse oximetry monitoring. Ordered and interpreted. CT of the abdomen and pelvis with oral and IV contrast was ordered. The patient was administered Zofran 4 mg ODT and placed on IV fluids. Patient's white count is normal. Lactic acid is unremarkable. UA reveals innumerable WBCs patient was administered Rocephin [address] of the abdomen and pelvis reveals prominent endometrium, no significant acute inflammatory markers. Vital signs are unremarkable. The patient was redosed with pain medication. The patient will be discharged home on antibiotics, is advised to follow-up with her surgeon. She will be provided a copy of her labs and CT results at discharge. Diagnosis Primary Impression: Abdominal pain Qualified Codes: R10.13 - Epigastric pain Additional Impression: Complicated UTI (urinary tract infection) Patient Instructions: General Instructions Additional Instructions: Please provide the patient a copy of her lab results and CT results at discharge. Follow-up with her primary physician. Return if symptoms worsen or progress. Med/Other Pt SpecificInfo: Prescription(s) given Scripts Ciprofloxacin (Cipro) 500 Mg Tab 500 MG PO BID for Infection for 7 Days, #14 TAB 0 Refills Prov: Alfonzo Dominguez MD 07/25/17 Disposition: 01 DISCHARGE HOME Condition: Stable Alfonzo Dominguez MD Jul 25, 2017 10:32
[2017-07-25 10:39] VITALS: BP 142/80; PULSE 70; RESP 12; O2SAT 100
[2017-07-25] MEDS ORDERED: DIATRIZOATE MEGLUM/DIATRIZOATE SOD 9 ML CUP ONE (10:42)
[2017-07-25] MEDS ORDERED: VENTAER INH (11:11)
[2017-07-25] MEDS ORDERED: KLOR10TA PO (11:11)
[2017-07-25] MEDS ORDERED: OMEP20TA93 PO (11:11)
[2017-07-25] MEDS ORDERED: MIRA3350 PO (11:11)
[2017-07-25 11:23] LABS: BACTERIA, URINE FEW /hpf; BILIRUBIN, URINE NEG (NEG); BLOOD, URINE SMALL (NEG); GLUCOSE,URINE NEG (NEG); HYALINE CAST, URINE 4 /lpf (RARE); KETONE, URINE 10 mg/dL (NEG); NITRITE,URINE NEG (NEG); URINE COLOR YELLOW (YELLW/STRAW); URINE LEUKOCYTE ESTERASE LARGE (NEG)
[2017-07-25] MEDS ORDERED: MORPHINE SULFATE 4 MG/ML INJ IV PUSH ONE ×2 (11:45→13:45)
[2017-07-25 11:51] LABS: ALKALINE PHOSPHATASE 114 U/L (45-117); ALT (GPT) 29 U/L (10-53); TOTAL BILIRUBIN ADULT 0.7 MG/DL (0.2-1.0); TOTAL PROTEIN 7.9 GM/DL (6.4-8.2)
[2017-07-25 11:58] LABS: ALBUMIN 4.2 GM/DL (3.4-5.0); AST (GOT) 53 U/L (15-37); BICARBONATE 24.6 MEQ/L (21.0-32.0); BLOOD UREA NITROGEN 10 MG/DL (7-18); CALCIUM 9.1 MG/DL (8.5-10.1); CHLORIDE 104 MEQ/L (98-107); CREATININE 0.74 MG/DL (0.50-1.00); GLOMERULAR FILTRATION RATE 80 ML/MIN (>89); GLUCOSE,RANDOM 93 MG/DL (74-106); SODIUM (NA) 138 MEQ/L (136-145)
[2017-07-25 12:03] LABS: TROPONIN I LESS THAN 0.02 NG/ML (0.02-0.05)
[2017-07-25 12:05] LABS: AUTOMATED NEUTROPHIL # 2.1 TH/MM3 (1.8-7.7); BASOPHIL % 0.7 % (0.0-2.0); EOSINOPHIL # 0.2 TH/MM3 (0-0.4); EOSINOPHIL % 6.1 % (0.0-4.0); HEMATOCRIT 39.7 % (35.0-46.0); HEMOGLOBIN 13.4 GM/DL (11.6-15.3); LYMPH % 27.4 % (9.0-44.0); MEAN CORPUSCULAR HEMOGLOBIN 31.8 PG (27.0-34.0); MEAN CORPUSCULAR HGB CONC 33.8 % (32.0-36.0); MEAN PLATELET VOLUME 9.4 FL (7.0-11.0); MONO % 7.8 % (0.0-8.0); MONOCYTE # 0.3 TH/MM3 (0-0.9); PLATELET COUNT 180 TH/MM3 (150-450); RED BLOOD COUNT 4.22 MIL/MM3 (4.00-5.30); RED CELL DISTRIBUTION WIDTH 13.3 % (11.6-17.2); WHITE BLOOD COUNT 3.7 TH/MM3 (4.0-11.0)
[2017-07-25] MEDS ORDERED: cefTRIAXone INJ 1,000 MG in SODIUM CHLORIDE 0.9% INJ 100 ML IV ONE (12:15)
[2017-07-25] MEDS ORDERED: IOHEXOL 350 MG/ML 10 ML VIAL (for RAD DIAG) IVCONTRAST ONE (13:00)
--- NOTE | 2017-07-25 13:03 | EKG ---
Date Performed: 07/25/2017 Time Performed: 11:10:36 PTAGE: 61 years EKG: Sinus rhythm NORMAL ECG PREVIOUS TRACING : 03/07/2016 16.03 DOCTOR: Usman Tesfaye Interpretating Date/Time 07/25/2017 13:02:37
[2017-07-25 13:47] VITALS: BP 150/71; PULSE 52; RESP 13; O2SAT 99
--- NOTE | 2017-07-25 14:21 | RADRPT ---
EXAM DATE: 07/25/2017 1:15 PM EDT AGE/SEX: 61 years / Female INDICATIONS: Patient complains of nausea and vomiting for three days. CLINICAL DATA: This is the patient's initial encounter. Patient reports that signs and symptoms have been present for 1 day and indicates a pain score of 5/10. MEDICAL/SURGICAL HISTORY: Cerebrovascular disease. Pancreatitis. Renal calculi. hypertension , seizures Cholecystectomy. ORAL CONTRAST: Prescribed oral contrast ingested. RADIATION DOSE: 6.59 CTDI (mGy) COMPARISON: [facility], CT ABDOMEN & PELVIS W CONTRAST, 03/29/2012. . TECHNIQUE: Multiple contiguous axial images were obtained through the abdomen and pelvis following b olus infusion of 97 ml Omnipaque 350 (iohexol) nonionic water-soluble contrast as a single exam dos e. Prescribed oral contrast ingested. Using automated exposure control and adjustment of the mA and/ or kV according to patient size, the radiation dose was kept as low as reasonably achievable to obtai n optimal diagnostic quality images. FINDINGS: The lower lungs are clear. The liver is free of focal defects Spleen and pancreas unremarkable . Adrenal glands appear normal There is symmetrical renal function Cecum and terminal appear normal. There is a normal appendix. Evidence for previous surgery seen in the left mid abdomen. The pelvis uterus is mildly prominent with a prominent endometrium. There is no adnexal mass. Sigmoid colon is decompressed with mild bowel wall thickening. There is no free fluid. CONCLUSION: 1. Prominent endometrium. 2. No inflammatory changes are evident 3. Bowel gas pattern unremarkable. Electronically signed by: Zelalem Cavazos MD 07/25/2017 2:20 PM EDT
[2017-07-25] MEDS ORDERED: CIPR-9 PO (14:28)
== END 2017-07-25 15:38 | disposition home or self-care (01) ==
LOC: NEPC 10:07
DX: R10.13 Epigastric pain (principal); N39.0 Urinary tract infection, site not specified; R11.2 Nausea with vomiting, unspecified; R30.0 Dysuria; I10 Essential (primary) hypertension; J44.9 Chronic obstructive pulmonary disease, unspecified; K21.9 Gastro-esophageal reflux disease without esophagitis; M19.90 Unspecified osteoarthritis, unspecified site; F32.9 Major depressive disorder, single episode, unspecified; Z85.828 Personal history of other malignant neoplasm of skin; Z86.73 Personal history of transient ischemic attack (TIA), and cerebral infarction without residual deficits; Z87.442 Personal history of urinary calculi; Z86.19 Personal history of other infectious and parasitic diseases; Z88.8 Allergy status to other drugs, medicaments and biological substances; Z79.899 Other long term (current) drug therapy
CPT/HCPCS: 74177; 80053; 81001; 82550; 83605; 83690; 84484; 85025; 87086; 93005; 96361; 96365; 96375; 99285; J0696; J2270; J7030; Q9963; Q9967